=== PATIENT | female | born 1940 | race Caucasian/White ===

== ENCOUNTER 2019-07-29 10:52 | Emergency (ER) | payer MEDICARE ==
--- NOTE | 2019-07-29 11:51 | RAD ---
XR Shoulder Rt 3 View STANDARD: 07/29/2019 11:28 AM CLINICAL INDICATION: Injury COMPARISON: None. FINDINGS: Fracture:No fracture. Arthropathy:Mild osteoarthritis Incidental findings:None of significance. IMPRESSION: 1. No acute osseous abnormality.
--- NOTE | 2019-07-29 11:52 | RAD ---
XR Hip Rt 2-3 View: 07/29/2019 11:29 AM CLINICAL INDICATION: Injury COMPARISON: None. FINDINGS: Fracture:No fracture. Arthropathy:Mild arthropathy. Incidental findings:None of significance. IMPRESSION: 1. No acute osseous abnormality.
--- NOTE | 2019-07-29 12:08 | CT ---
Exam: Head CT without contrast HISTORY: Parkinson's disease. Frequent falls. COMPARISON: none FINDINGS: Hemorrhage: No intraparenchymal hemorrhage or extra-axial hematoma. Brain parenchyma: Cortical valle-white matter differentiation is preserved. No mass effect or midline shift. Basilar cisterns are patent.Diffuse cerebral atrophy. White matter hypodensities due to chronic small vessel ischemic change Ventricular system: Ventricles and sulci are patent and symmetric. Calvarium: Intact. Sinuses and mastoid air cells: Adequate aeration. IMPRESSION: 1. No intracranial posttraumatic sequelae. 2. Diffuse cerebral atrophy. Chronic small vessel ischemic changes white matter.
--- NOTE | 2019-07-29 12:18 | CT ---
CT Cervical Spine WO Con Indication: Pain/Injury COMPARISON: None FINDINGS: Acute fracture/subluxation: None Spinal alignment: Multilevel mild listheses are present, likely degenerative, given the extensive villa ure of multilevel facet osteoarthritis. Vertebral body heights: No acute compression fracture Cervical spine degenerative change: Severe multilevel degenerative change. IMPRESSION: No acute osseous abnormality.
== END 2019-07-29 13:00 | disposition home or self-care (01) ==
LOC: SCSER 10:52
DX: S16.1XXA Strain of muscle, fascia and tendon at neck level, initial encounter (principal); S00.93XA Contusion of unspecified part of head, initial encounter; S40.011A Contusion of right shoulder, initial encounter; S70.01XA Contusion of right hip, initial encounter; E03.9 Hypothyroidism, unspecified; F31.9 Bipolar disorder, unspecified; F41.9 Anxiety disorder, unspecified; G20 Parkinson's disease; F02.80 Dementia in other diseases classified elsewhere, unspecified severity, without behavioral disturbance, psychotic disturbance, mood disturbance, and anxiety; Z79.899 Other long term (current) drug therapy; W01.0XXA Fall on same level from slipping, tripping and stumbling without subsequent striking against object, initial encounter
CPT/HCPCS: 70450; 72125

== ENCOUNTER 2020-03-06 10:17 | Outpatient (CLI) | payer MEDICARE ==
--- NOTE | 2020-03-06 16:18 | NM ---
NUCLEAR MEDICINE BRAIN TOMOGRAPHIC IMAGING HISTORY: Parkinson's disease COMPARISON: None TECHNIQUE: A nuclear medicine tomographic scan was performed using 4.1 mCi of I-123 Ioflupane. FINDINGS: There is round uptake of the radiopharmaceutical by the basal ganglia. IMPRESSION: Findings are consistent with a parkinsonian syndrome
== END 2020-03-06 10:18 | disposition home or self-care (01) ==
LOC: NM 10:17
PROVIDERS: ATTEND Psychiatry & Neurology Neurology
DX: G20 Parkinson's disease (principal)
CPT/HCPCS: 78803; A9584

== ENCOUNTER 2020-07-04 11:01 | Outpatient (CLI) | payer MEDICARE ==
--- NOTE | 2020-07-04 12:04 | RAD ---
LUMBAR SPINE 3 VIEWS: Date: 07/04/2020 HISTORY: Back pain. FINDINGS: Lumbar vertebra maintain normal height. There is a Grade I-II spondylolisthesis at L4-5 with loss of disc space at L4-5 and at L5-S1. Facet h ypertrophy. No evidence of spondylolysis identified. IMPRESSION: Spondylolisthesis at L4-5. Loss of disc space at L4-5 and L5-S1 with degenerative facet hypertrophy s een throughout the lumbar spine. POS: [facility]
== END 2020-07-04 11:02 | disposition home or self-care (01) ==
LOC: SCSRAD 11:01
PROVIDERS: ATTEND Family Medicine
DX: M54.5 Low back pain (principal); M43.16 Spondylolisthesis, lumbar region; M47.816 Spondylosis without myelopathy or radiculopathy, lumbar region; M51.86 Other intervertebral disc disorders, lumbar region; M51.87 Other intervertebral disc disorders, lumbosacral region
CPT/HCPCS: 72100

== ENCOUNTER 2022-07-03 13:48 | Outpatient (CLI) | payer MEDICARE | END 2022-07-03 13:49 | disposition home or self-care (01) | LOC: SCSMRI 13:48 | PROVIDERS: ATTEND Surgery | DX: S22.079A Unspecified fracture of T9-T10 vertebra, initial encounter for closed fracture (principal); M50.31 Other cervical disc degeneration, high cervical region; S22.089A Unspecified fracture of T11-T12 vertebra, initial encounter for closed fracture; R29.6 Repeated falls | CPT/HCPCS: 72072; 72141 ==

== ENCOUNTER 2023-09-04 10:59 | Emergency (ER) | payer OTHER, MEDICARE, MEDICAID ==
[2023-09-04 12:07] LABS: #Monocytes 0.7 thou/uL (0.11-0.59); #Neutrophils 4.5 thou/uL (1.40-6.50); %Basophils 0.5 % (0.0-1.0); %Eosinophils 0.5 % (0.0-10.0); %Lymphocytes 17.9 % (21.0-51.0); %Monocytes 11.3 % (0.0-10.0); %Neutrophils 69.5 % (42.0-75.0); Hematocrit 31.7 % (36.0-47.0); Hemoglobin 10.1 g/dL (12.0-16.0); Mean Corpuscular HGB CONC 31.9 g/dL (32.0-36.0); Mean Corpuscular Hemoglobin 30.6 pg (27.0-31.0); Mean Corpuscular Volume 96.1 fl (78.0-98.0); Mean Platelet Volume 9.2 fL (7.4-10.4); Platelet Count 231 10x3/uL (130-400); White Blood Cell (WBC) Count 6.4 10x3/uL (4.8-10.8)
[2023-09-04 12:24] LABS: ALT (SGPT) Less than 7 U/L (8-55); AST (SGOT) 14 U/L (5-34); Albumin 4.1 g/dL (3.4-4.8); Alkaline Phosphatase 96 U/L (40-110); Anion Gap 13 mmol/L (10-20); BUN (Urea Nitrogen) 12 mg/dL (9.8-20.1); Bilirubin, Total 0.5 mg/dL (0.2-1.2); CK (CPK) 99 U/L (29-168); Calc. Creatinine Clearance 0 mL/min (70-130); Calcium 8.5 mg/dL (7.8-10.44); Carbon Dioxide 22 mmol/L (23-31); Chloride 101 mmol/L (98-107); Estimated GFR 87; Globulin 2.7 g/dL (2.4-3.5); Glucose 97 mg/dL (83-110); Lipase 10 U/L (8-78); Protein, Total 6.8 g/dL (5.8-8.1); Sodium 132 mmol/L (136-145)
[2023-09-04 12:27] LABS: Troponin I Less than 0.010 ng/mL (< 0.028)
[2023-09-04 13:51] LABS: Bacteria/HPF 4+ HPF (None Seen); Bilirubin Negative (Negative); Blood, Urine Trace (Negative); CAUTI Indications for Culture Alt mental st,lethar; Clarity Clear (Clear); Glucose, Urine (Dipstick) Normal (Negative); Ketone, Urine Negative (Negative); Leukocyte 500 Leu/uL (Negative); Nitrite Negative (Negative); Protein, Urine (Dipstick) 10 mg/dL (Neg-Trace); RBC/HPF 0-3 HPF (0-3); Specific Gravity, Urine 1.012 (1.002-1.036); Squamous Epithelial 0-3 HPF (0-3); Urobilinogen Normal mg/dL (Less than 2); WBC/HPF Greater than 50 HPF (0-3); pH, Urine 7.5 (5.0-9.0)
[2023-09-04 13:53] LABS: Urine Culture Reflex Yes Yes
[2023-09-04 13:59] LABS: SARS-CoV-2 NAA Rapid Test Not Detected (NotDetected)
[2023-09-04] MEDS ORDERED: cefTRIAXone (ROCEPHIN) 2 GM VIAL ONE (14:44)
[2023-09-04] MEDS ORDERED: Sodium Chloride 0.9% 100 ML ONE (14:44)
[2023-09-04] MEDS ORDERED: Morphine 2 MG/ML VIAL ONE (14:45)
== END 2023-09-04 16:20 | disposition short-term general hospital (02) ==
LOC: ERS 10:59
DX: S02.609A Fracture of mandible, unspecified, initial encounter for closed fracture (principal); N39.0 Urinary tract infection, site not specified; G20.A1 Parkinson's disease without dyskinesia, without mention of fluctuations; W01.0XXA Fall on same level from slipping, tripping and stumbling without subsequent striking against object, initial encounter
CPT/HCPCS: 0240U; 70450; 70486; 71045; 72125; 80053; 81001; 82550; 83605; 83690; 84484; 85025; 87040; 87077; 87086; 87186; 93005; 96365; 96375; J0696; J2272; J3490

== ENCOUNTER 2023-11-10 03:52 | Inpatient (IN) | payer MEDICARE, MEDICAID ==
[2023-11-10] MEDS ORDERED: Acetaminophen 650 MG Suppository ONE (04:09)
[2023-11-10 04:53] LABS: INR-International Normal Ratio 1.1
[2023-11-10 04:54] LABS: PTT 33.1 sec (22.9-36.1)
[2023-11-10 05:14] LABS: Influenza A by NAA Not Detected (NotDetected); Influenza B by NAA Not Detected (NotDetected); SARS-CoV-2 NAA Rapid Test Not Detected (NotDetected)
[2023-11-10] MEDS ORDERED: Morphine 2 MG/ML VIAL SLOW IVP PRN (05:44)
[2023-11-10] MEDS ORDERED: Ondansetron ODT 4 MG TAB SL PRN (05:45)
[2023-11-10] MEDS ORDERED: Ondansetron PF 4 MG/2 ML Vial IVP PRN (05:45)
[2023-11-10] MEDS ORDERED: cefTRIAXone (ROCEPHIN) 2 GM VIAL ONE (06:30)
[2023-11-10] MEDS ORDERED: D5 1/2 NS w/20 mEq KCL 1,000 ML ONE (06:30)
[2023-11-10] MEDS: D5 1/2 NS w/20 mEq KCL 1,000 ML IV SCH (06:41)
[2023-11-10] MEDS: cefTRIAXone\\ROCEPHIN 2 GM in Sodium Chloride 0.9% 100 ML IVPB SCH (06:41)
[2023-11-10] MEDS ORDERED: CEFAZOLIN 2 GM in Sodium Chloride 0.9% 100 ML IVPB SCH (07:30)
[2023-11-10 11:44] LABS: #Eosinphils 0.2 thou/uL (0.0-0.7); #Monocytes 0.4 thou/uL (0.11-0.59); %Basophils 0.6 % (0.0-1.0); %Eosinophils 3.3 % (0.0-10.0); %Lymphocytes 13.9 % (21.0-51.0); %Neutrophils 73.6 % (42.0-75.0); Hematocrit 28.8 % (36.0-47.0); Hemoglobin 9.5 g/dL (12.0-16.0); Mean Corpuscular Hemoglobin 29.7 pg (27.0-31.0); Mean Platelet Volume 9.3 fL (7.4-10.4); Platelet Count 191 10x3/uL (130-400); RBC Distribution Width 16.1 % (11.5-14.5); White Blood Cell (WBC) Count 5.4 10x3/uL (4.8-10.8)
[2023-11-10 12:01] LABS: Anion Gap 11 mmol/L (10-20); BUN (Urea Nitrogen) 11 mg/dL (9.8-20.1); Calc. Creatinine Clearance 75 mL/min (70-130); Calcium 7.7 mg/dL (7.8-10.44); Carbon Dioxide 22 mmol/L (23-31); Chloride 108 mmol/L (98-107); Estimated GFR 90; Glucose 108 mg/dL (83-110); Potassium 3.5 mmol/L (3.5-5.1); Sodium 137 mmol/L (136-145)
[2023-11-10 12:13] LABS: Bilirubin Negative (Negative); Blood, Urine Trace (Negative); CAUTI Indications for Culture Alt mental st,lethar; Clarity Turbid (Clear); Glucose, Urine (Dipstick) Normal (Negative); Ketone, Urine Trace mg/dL (Negative); Leukocyte 500 Leu/uL (Negative); Nitrite Negative (Negative); Protein, Urine (Dipstick) Negative (Neg-Trace); Specific Gravity, Urine 1.014 (1.002-1.036); Urobilinogen Normal mg/dL (Less than 2)
[2023-11-10 12:24] LABS: RBC/HPF 0-3 HPF (0-3); WBC/HPF 21-50 HPF (0-3)
[2023-11-10 12:25] LABS: Bacteria/HPF Rare-Few HPF (None Seen)
[2023-11-10] MEDS ORDERED: fentaNYL PF 100 MCG/2 ML SYRINGE ONE (14:26)
[2023-11-10] MEDS ORDERED: CEFAZOLIN 2 GM VIAL ONE (14:31)
[2023-11-10] MEDS ORDERED: Sodium Chloride 0.9% 100 ML ONE (14:31)
[2023-11-10] MEDS ORDERED: ePHEDrine Sulfate 50 MG/10 ML VIAL ONE (14:32)
[2023-11-10] MEDS ORDERED: PROPOFOL 20 ML ONE (15:18)
[2023-11-10] MEDS: Carbidopa/Levodopa 25-100 mg Tablet PO SCH (18:49)
[2023-11-10] MEDS: Acetaminophen/Codeine 30-300mg Tablet PO PRN (19:31)
[2023-11-10] MEDS: QUEtiapine 25 MG TAB PO SCH (19:31)
[2023-11-10] MEDS: Mirtazapine 15 MG TAB PO SCH (19:32)
[2023-11-10] MEDS: Divalproex Sodium 125 mg Sprinkle Capsule PO SCH (19:32)
[2023-11-10] MEDS: CEFAZOLIN 2 GM in Sodium Chloride 0.9% 100 ML IVPB SCH (21:04)
[2023-11-11 04:51] LABS: #Eosinphils 0.1 thou/uL (0.0-0.7); #Monocytes 0.7 thou/uL (0.11-0.59); #Neutrophils 4.5 thou/uL (1.40-6.50); %Basophils 0.5 % (0.0-1.0); %Eosinophils 1.6 % (0.0-10.0); %Lymphocytes 15.2 % (21.0-51.0); %Monocytes 11.6 % (0.0-10.0); %Neutrophils 70.8 % (42.0-75.0); Hematocrit 26.7 % (36.0-47.0); Hemoglobin 8.7 g/dL (12.0-16.0); Mean Corpuscular HGB CONC 32.6 g/dL (32.0-36.0); Mean Corpuscular Hemoglobin 29.3 pg (27.0-31.0); Mean Corpuscular Volume 89.9 fl (78.0-98.0); Mean Platelet Volume 10.2 fL (7.4-10.4); Platelet Count 179 10x3/uL (130-400); RBC Distribution Width 15.9 % (11.5-14.5); Red Blood Cell (RBC) Count 2.97 mill/uL (4.20-5.40); White Blood Cell (WBC) Count 6.4 10x3/uL (4.8-10.8)
[2023-11-11 05:13] LABS: INR-International Normal Ratio 1.1
[2023-11-11 05:26] LABS: Anion Gap 12 mmol/L (10-20); BUN (Urea Nitrogen) 10 mg/dL (9.8-20.1); Calc. Creatinine Clearance 75 mL/min (70-130); Carbon Dioxide 23 mmol/L (23-31); Chloride 105 mmol/L (98-107); Estimated GFR 90; Glucose 85 mg/dL (83-110); Magnesium 1.8 mg/dL (1.6-2.6); Phosphorus 2.8 mg/dL (2.3-4.7); Potassium 3.6 mmol/L (3.5-5.1); Sodium 136 mmol/L (136-145)
[2023-11-11] MEDS ORDERED: Morphine 2 MG/ML VIAL SLOW IVP PRN (08:59)
[2023-11-11] MEDS: BuPROPion XL 150 MG ER.TAB PO SCH (09:17)
[2023-11-11] MEDS: Aspirin 81 mg Enteric Coated Tablet PO SCH (09:17)
[2023-11-11] MEDS: Ibuprofen 200 MG TAB PO SCH (09:18)
[2023-11-11] MEDS: Levothyroxine Sodium 50 MCG TAB PO SCH (09:19)
[2023-11-12] MEDS: Lactulose 20 GM (30 mL) UDCUP PO SCH (15:58)
[2023-11-12] MEDS: Senokot S 8.6-50 MG TAB PO SCH (20:04)
[2023-11-13 08:22] VITALS: TEMP 97.9
[2023-11-13] MEDS: Polyethylene Glycol 3350 17 GM Packet PO SCH (08:28)
[2023-11-13 10:43] VITALS: BP 116/72
== END 2023-11-13 14:12 | DRG 481 ==
LOC: ERS 03:52 → ERHOLD 05:33 → SURG A 15:40 → SJJU 17:15
PROVIDERS: ADMIT Specialist; ATTEND Specialist
PROC: 0QS904Z Reposition Left Femoral Shaft with Internal Fixation Device, Open Approach (ICD-10-PCS; principal; 2023-11-10)
PROC: 3E033XZ Introduction of Vasopressor into Peripheral Vein, Percutaneous Approach (ICD-10-PCS; 2023-11-10)
DX: S72.002A Fracture of unspecified part of neck of left femur, initial encounter for closed fracture (principal); G93.49 Other encephalopathy; S32.041A Stable burst fracture of fourth lumbar vertebra, initial encounter for closed fracture; G47.30 Sleep apnea, unspecified; F32.A Depression, unspecified; F41.9 Anxiety disorder, unspecified; E03.9 Hypothyroidism, unspecified; G20.A1 Parkinson's disease without dyskinesia, without mention of fluctuations; F02.80 Dementia in other diseases classified elsewhere, unspecified severity, without behavioral disturbance, psychotic disturbance, mood disturbance, and anxiety; W18.30XA Fall on same level, unspecified, initial encounter; G89.11 Acute pain due to trauma; R41.82 Altered mental status, unspecified; Z88.2 Allergy status to sulfonamides; Z90.710 Acquired absence of both cervix and uterus; Z98.890 Other specified postprocedural states
CPT/HCPCS: 36415; 72170; 80048; 81001; 83605; 83735; 84100; 85025; 85610; 85730; 86850; 86900; 86901; 87040; 93005; 93010; C1713; J0696; J2704; J3480; J3490